=== PATIENT | female | born 1945 | race Caucasian/White ===

== ENCOUNTER 2016-07-13 10:32 | Day surgery (SDC) | payer MEDICARE, OTHER ==
--- NOTE | ~2016-07-13 | EGD ---
EGD REPORT [facility] [address] [place] [address] NAME: RICK TERRY : [birth year] STATUS : REG [facility]#: [id number] AGE: 70 ADM/REG DATE : 07/13/16 MR#: [id number] REPORT SERV DATE: 07/13/16 DICTATED BY: ESTELLE MANSFIELD DATE: 07/13/16 REPORT STATUS : Draft [facility] DATE: 07/13/16 [facility] Center Patient Name: Rick Terry Date of : 1945 Attending MD: ESTELLE MANSFIELD MD Procedure Date No Time: 07/13/2016 Procedure: Upper GI endoscopy Indications: Abdominal pain in the right upper quadrant, Heartburn, Suspected esophageal reflux, Nausea Referring MD: RUY GUNDERSON MD, KEVIN JUÁREZ, AUNG ANTONIO Medicines: as per anesthesia Complications: No immediate complications. Procedure: Pre-Anesthesia Assessment: - ASA Grade Assessment: III - A patient with severe systemic disease. After obtaining informed consent, the endoscope was passed under direct vision. Throughout the procedure, the patient's blood pressure, pulse, and oxygen saturations were monitored continuously. The GIF [id number] was introduced through the mouth, and advanced to the third part of duodenum. The upper GI endoscopy was accomplished without difficulty. The patient tolerated the procedure. Findings: The examined esophagus was normal. Localized mild inflammation characterized by erythema was found in the gastric antrum. Biopsies were taken with a cold forceps for histology. A few sessile polyps were found in the gastric body. Biopsies were taken with a cold forceps for histology. The cardia and gastric fundus were normal on retroflexion. The examined duodenum was normal. Impression: - Normal esophagus. - Gastritis. Biopsied. - A few gastric polyps. Biopsied. - Normal examined duodenum. Recommendation: - Await pathology results. - Follow an antireflux regimen. - Continue present medications. Procedure Code(s): --- Professional --- 92450, Esophagogastroduodenoscopy, flexible, transoral; EGD REPORT [address] [place]. [address] NAME: RICK TERRY : [birth year] STATUS : REG [facility] PAT#: [id number] AGE: 70 ADM/REG DATE : 07/13/16 MR#: [id number] REPORT SERV DATE: 07/13/16 DICTATED BY: ESTELLE MANSFIELD. DATE: 07/13/16 REPORT STATUS : Draft TRANSCRIBED BY: [employer] DATE: 07/13/16 with biopsy, single or multiple Diagnosis Code(s): --- Professional --- K29.70, Gastritis, unspecified, without bleeding K31.7, Polyp of stomach and duodenum R10.11, Right upper quadrant pain R12, Heartburn R11.0, Nausea CPT copyright 2013 [employer]. All rights reserved. The codes documented in this report are preliminary and upon cardiology manager review may be revised to meet current compliance requirements. ESTELLE MANSFIELD MD 07/13/2016 12:57 PM This report has been signed electronically. Number of Addenda: 0 Note Initiated On: 07/13/2016 12:25 PM Scope Withdrawal Time 0 hours 0 minutes [address] [place] [id number]
[~2016-07-13 10:32] MED LIST: ACET500CAP PO; ACIPHEX PO; ALIGN4 MG PO; ASAB PO; ATEN25 PO; AYGESTIN5 MG PO; AZULFENTAB PO; CEFT5 PO; CLARIT10 PO; DELESTROGEN40 MG/ML IM; FOLIC PO; GLUCCHONDR PO; GLUCOSAMINEPO PO; HALF81 PO; I10 PO; JUBLIA 10% TOP; JUBLIA TOP; MACROBID PO; MULTIPLE VIT PO; MULTIVIT/MIN PO; MULTIVITAMI1 PO; NIASPAN750 PO; OMNICEF300 PO; OS500+D PO; PROBIOTIC PO; SAS500 PO; VITAMIN C100 M1 PO; VITAMIN C1000 MG PO; VITC500 PO; VOLTAREN1 % TOP; WELCHOL 625 MG625 MG OR; WELCHOL 625 MG625 MG PO; ZETIA PO; ZOFRAN ODT4 MG PO
== END 2016-07-13 23:59 | disposition home or self-care (01) ==
LOC: DMU 10:32
PROVIDERS: Internal Medicine Gastroenterology
PROC: 0DB68ZX Excision of Stomach, Via Natural or Artificial Opening Endoscopic, Diagnostic (ICD-10-PCS; principal; 2016-07-13 12:00)
DX: K29.50 Unspecified chronic gastritis without bleeding (principal); K31.7 Polyp of stomach and duodenum; E78.00 Pure hypercholesterolemia, unspecified; M19.90 Unspecified osteoarthritis, unspecified site; K21.9 Gastro-esophageal reflux disease without esophagitis; K44.9 Diaphragmatic hernia without obstruction or gangrene; K51.90 Ulcerative colitis, unspecified, without complications; Z88.8 Allergy status to other drugs, medicaments and biological substances; Z88.5 Allergy status to narcotic agent; Z91.040 Latex allergy status
CPT/HCPCS: 88305